=== PATIENT | male | born 1950 ===

== ENCOUNTER 2018-10-31 10:36 | Observation (INO) | payer SELFPAY ==
--- NOTE | 2018-10-31 11:06 | ED PDOC ---
HPI: Chest Pain Time Seen by Provider: 10/31/18 10:43 Chief Complaint (Nursing): Chest Pain Chief Complaint (Provider): Chest Pain History Per: Patient History/Exam Limitations: no limitations Onset/Duration Of Symptoms: Hrs Additional Complaint(s): 68 y/o male presents to the ED referred from [facility] due to an episode of chest discomfort radiating to both shoulder and arms this morning. Patient states he had a stress test in September inconclusive results and nuclear scan in October which showed reversible ischemia. Patient denies any shortness of breath. PMD: none provided Past Medical History Reviewed: Historical Data, Nursing Documentation, Vital Signs Vital Signs: Last Vital Signs Temp 97.7 F 10/31/18 10:55 Pulse 60 10/31/18 10:55 Resp 16 10/31/18 10:55 BP 135/66 10/31/18 10:55 Pulse Ox 100 10/31/18 10:55 Primary Care Provider: Doctor,Harinder - Medical History PMH: Hypercholesterolemia - Family History Family History: States: Unknown Family Hx - Allergies Allergies/Adverse Reactions: Allergies Allergy/AdvReac Type Severity Reaction Status Date / Time amoxicillin Allergy DIARRHEA Verified 10/31/18 10:55 ibuprofen Allergy SWELLING Verified 10/31/18 10:55 aspirin AdvReac SWELLING Verified 10/31/18 10:55 Review of Systems ROS Statement: Except As Marked, All Systems Reviewed And Found Negative Cardiovascular: Positive for: Chest Pain Respiratory: Negative for: Shortness of Breath Musculoskeletal: Positive for: Shoulder Pain, Arm Pain Physical Exam - Reviewed Nursing Documentation Reviewed: Yes Vital Signs Reviewed: Yes - Physical Exam Appears: Positive for: Well, Non-toxic, No Acute Distress Head Exam: Positive for: ATRAUMATIC, NORMAL INSPECTION, NORMOCEPHALIC Skin: Positive for: Normal Color, Warm, Dry Eye Exam: Positive for: EOMI, Normal appearance, PERRL ENT: Positive for: Normal ENT Inspection Neck: Positive for: Normal, Painless ROM, Supple Cardiovascular/Chest: Positive for: Regular Rate, Rhythm. Negative for: Murmur Respiratory: Positive for: Normal Breath Sounds. Negative for: Wheezing Gastrointestinal/Abdominal: Positive for: Normal Exam, Soft. Negative for: Tenderness Back: Positive for: Normal Inspection. Negative for: L CVA Tenderness, R CVA Tenderness Extremity: Positive for: Normal ROM Neurological/Psych: Positive for: Awake, Alert, Normal Tone, Oriented (x3). Negative for: Motor/Sensory Deficits - Laboratory Results Result Diagrams: 10/31/18 11:40 10/31/18 11:20 - ECG O2 Sat by Pulse Oximetry: 100 Medical Decision Making Medical Decision Making: Time:11:00 Impression: Plan: -EKG -CMP -Troponin -CBC -Chest x-ray Scribe Attestation: Documented by Georgette Camacho, acting as a scribe for Missael Johnson Provider Scribe Attestation: All medical record entries made by the Scribe were at my direction and personally dictated by me. I have reviewed the chart and agree that the record accurately reflects my personal performance of the history, physical exam, medical decision making, and the department course for this patient. I have also personally directed, reviewed, and agree with the discharge instructions and disposition. Disposition - Clinical Impression Clinical Impression: Chest pain - Patient ED Disposition Is Patient to be Admitted: Yes - Disposition Disposition Time: 12:41 Condition: FAIR Forms: [facility] (Croatian) - Pt Status Changed To: Hospital Disposition Of: Observation - POA Present On Arrival: None
[2018-10-31 11:48] LABS: ALB/GLOB RATIO 1.6 (1.0-2.1); ALBUMIN 4.4 g/dL (3.5-5.0); ALT/SGPT 33 U/L (21-72); AST/SGOT 27 U/L (17-59); BLOOD UREA NITROGEN 18 mg/dl (9-20); CALCIUM 9.7 mg/dL (8.4-10.2); GFR NON-AFRICAN AMERICAN > 60
[2018-10-31 12:11] LABS: HEMOGLOBIN 14.5 g/dL (12.0-18.0); RBC 4.77 Mil/uL (4.40-5.90); WHITE BLOOD COUNT 7.3 K/uL (4.8-10.8)
[2018-10-31 12:12] LABS: BASO % 0.8 % (0.0-2.0); EOS % 0.5 % (0.0-4.0); LYMPH % 22.7 % (20.0-40.0); MEAN CELL VOLUME 90.4 fl (80.0-94.0); MEAN CORPUSCULAR HEMOGLOBIN 30.3 pg (27.0-31.0); MEAN CORPUSCULAR HGB CONC 33.6 g/dL (33.0-37.0); MEAN PLATELET VOLUME 9.4 fl (7.2-11.7); MONO % 8.2 % (0.0-10.0); NEUT % 67.8 % (50.0-75.0); NRBC % 0.1 % (0.0-0.0); RED CELL DISTRIBUTION WIDTH 13.3 % (11.5-14.5)
[2018-10-31 12:13] LABS: BASO # 0.1 K/uL (0.0-0.2); LYMPH # 1.7 K/uL (1.0-4.3); MONO # 0.6 K/uL (0.0-0.8)
--- NOTE | 2018-10-31 13:39 | CP.PCM.HP ---
History of Present Illness - History of Present Illness History of Present Illness: 68 yo male with no medical history was sent by the [facility] because of chest pain, rule out ACS. Patient had a previous stress EKG which was inconclusive, Nuclear stress test demonstrated mild reversible perfusion defect. Patient states he had right and left sided chest pain, 8/10, that started this morning at 5 am while he was laying in bed. Pain radiates down both arms and ends at the elbows bilaterally. Reports he took Aspirin 81mg at home and it helped with the pain. Describes the pain as muscular like pain. Denies dypsnea, nausea, vomiting, abdominal pain, dysuria, frequency and urgency. ROS: Negative except for stated above in HPI. PMD: [facility] Family History: Non-contributory Surgical history: Denies Home medications: None. Social history: Works in a [employer]. Denies smoking history, illicit drug use, Alcohol use. ED course: Vital signs stable -EKG -CMP -Troponin -CBC -Chest x-ray Present on Admission - Present on Admission Any Indicators Present on Admission: No Past Patient History - Past Social History Smoking Status: Never Smoked - CARDIAC Hx Hypercholesterolemia: Yes - PSYCHIATRIC Hx Substance Use: No - SURGICAL HISTORY Hx Surgeries: No - ANESTHESIA Hx Anesthesia: No Meds Home Medications: Home Medication List Medication Instructions Recorded Confirmed Type Atorvastatin [Lipitor] 20 mg PO DAILY #30 tab 10/31/18 Rx Allergies/Adverse Reactions: Allergies Allergy/AdvReac Type Severity Reaction Status Date / Time amoxicillin Allergy DIARRHEA Verified 10/31/18 10:55 ibuprofen Allergy SWELLING Verified 10/31/18 10:55 aspirin AdvReac SWELLING Verified 10/31/18 10:55 Physical Exam - Constitutional Appears: Non-toxic, No Acute Distress - Eye Exam Eye Exam: Normal appearance - ENT Exam ENT Exam: Mucous Membranes Moist - Respiratory Exam Respiratory Exam: Clear to Auscultation Bilateral, NORMAL BREATHING PATTERN. absent: Accessory Muscle Use, Chest Wall Tenderness, Decreased Breath Sounds, Prolonged Expiratory Phase, Rales, Rhonchi, Wheezes, Respiratory Distress, Stridor - Cardiovascular Exam Cardiovascular Exam: REGULAR RHYTHM, +S1, +S2 Additional comments: Chest pain is not reproducible - GI/Abdominal Exam GI & Abdominal Exam: Normal Bowel Sounds, Soft. absent: Diminished Bowel Sounds, Distended, Firm, Rebound, Rigid, Tenderness - Extremities Exam Extremities exam: Positive for: normal capillary refill, normal inspection, pedal pulses present. Negative for: calf tenderness, joint swelling, pedal edema, tenderness - Neurological Exam Neurological exam: Alert, Oriented x3 - Psychiatric Exam Psychiatric exam: Normal Affect, Normal Mood - Skin Skin Exam: Dry, Intact, Normal Color, Warm Results - Vital Signs Recent Vital Signs: Last Vital Signs Temp 97.7 F 10/31/18 10:55 Pulse 60 10/31/18 10:55 Resp 16 10/31/18 10:55 BP 135/66 10/31/18 10:55 Pulse Ox 100 10/31/18 12:41 - Labs Result Diagrams: 10/31/18 11:40 10/31/18 11:20 Labs: Laboratory Results - last 24 hr 10/31/18 10/31/18 11:20 11:40 WBC 7.3 RBC 4.77 Hgb 14.5 Hct 43.1 MCV 90.4 MCH 30.3 MCHC 33.6 RDW 13.3 Plt Count 206 MPV 9.4 Neut % (Auto) 67.8 Lymph % (Auto) 22.7 [place] % (Auto) 8.2 Eos % (Auto) 0.5 Baso % (Auto) 0.8 Neut # (Auto) 5.0 Lymph # (Auto) 1.7 [place] # (Auto) 0.6 Eos # (Auto) 0.0 Baso # (Auto) 0.1 Sodium 138 Potassium 4.1 Chloride 104 Carbon Dioxide 27 Anion Gap 11 BUN 18 Creatinine 0.8 Est GFR ( Amer) > 60 Est GFR (Non-Af Amer) > 60 Random Glucose 102 Calcium 9.7 Total Bilirubin 0.7 AST 27 ALT 33 Alkaline Phosphatase 99 Troponin I < 0.0120 Total Protein 7.2 Albumin 4.4 Globulin 2.8 Albumin/Globulin Ratio 1.6 Assessment & Plan - Assessment and Plan (Free Text) Assessment: 68 yo male with no medical history was sent by the [facility] because of chest pain, rule out ACS Plan: Chest pain - Rule out ACS - Admit to telemetry - Troponin x1 negative - Initial EKG: NSR - Chest Negative: Negative for active disease - Repeat Troponin - Repeat EKG Discussed with Dr. Michelle Garcia, PGY 1
[2018-10-31 14:35] VITALS: BMI 20.9
--- NOTE | 2018-10-31 14:38 | RAD ---
Date of service: 10/31/2018 HISTORY: Chest pain COMPARISON: No prior. TECHNIQUE: Chest PA and lateral views FINDINGS: LUNGS: No active pulmonary disease. PLEURA: No significant pleural effusion identified. No pneumothorax apparent. CARDIOVASCULAR: No aortic atherosclerotic calcification present. Normal cardiac size. No pulmonary vascular congestion. OSSEOUS STRUCTURES: No significant abnormalities. VISUALIZED UPPER ABDOMEN: Normal. OTHER FINDINGS: None. IMPRESSION: No active disease.
[2018-10-31 17:27] VITALS: BP 130/54; PULSE 65; RESP 16; TEMP 98; O2SAT 100
--- NOTE | 2018-10-31 20:02 | CARD ---
APPROVED REPORT Date of service: 10/31/2018 EKG Measurement Heart [id number] <Conclusion> Sinus bradycardia with sinus arrhythmia Otherwise normal ECG
--- NOTE | 2018-10-31 20:03 | CARD ---
APPROVED REPORT Date of service: 10/31/2018 EKG Measurement Heart [id number] QT0T0 QTc0 <Conclusion> Sinus bradycardia Low voltage complexes No QRS complexes found, in precordial leads- possible artifact. Abnormal ECG.
[2018-11-01] MEDS ORDERED: Enoxaparin 40 mg Syringe SC SCH (09:00)
== END 2018-10-31 17:06 | disposition home or self-care (01) ==
LOC: H.ER 10:36 → H.ERHOLD 12:47
PROVIDERS: ADMIT Hospitalist; ATTEND Hospitalist
DX: R07.9 Chest pain, unspecified (principal); E78.00 Pure hypercholesterolemia, unspecified; E78.5 Hyperlipidemia, unspecified; Z79.899 Other long term (current) drug therapy; R94.31 Abnormal electrocardiogram [ECG] [EKG]; Z88.6 Allergy status to analgesic agent; Z88.0 Allergy status to penicillin
CPT/HCPCS: 71046; 80053; 84484; 85025; 93005; 99285; G0378